=== PATIENT | male | born 1950 | race Caucasian/White ===

== ENCOUNTER → 2018-06-03 | Outpatient (CLI) | payer OTHER, MEDICARE ==
[~2018-06-03] MED LIST: ALBU1AER9 INH; ASPCH81 PO; CLBCR15 EXT; FLM4 PO; FLUO0.0121 EXT; FLUT0.15 NAE; HYDCR25 TOP; LISI40TA PO; LPT40 PO
--- NOTE | 2018-06-03 10:03 | DIAGNOSTIC IMAGING REPORT ---
L-SPINE MIN 4 VIEWS ROUTINE, SI JOINTS 3 OR MORE VIEWS HISTORY: 67 years-old Male M54.30 acute low back and sacral pain COMPARISON: PET CT 10/31/2016, CT abdomen and pelvis 04/28/2015 TECHNIQUE: 5 views of the lumbar spine and 3 views of the SI joints. FINDINGS: LUMBAR SPINE: 5 nonrib-bearing lumbar type vertebral segments are present. No spondylolysis or spondylolisthesis. Severe intervertebral disc space narrowing with spondylitic spurring and vacuum disc phenomenon noted at and L3-L4 and L4-L5 with moderate to severe intervertebral disc space narrowing at L5-S1. No spondylolysis or spondylolisthesis identified. No acute fracture or subluxation. Aortobiiliac stent graft noted. SI JOINTS: Mild degenerative changes about the bilateral SI joints. No acute fracture, dislocation or evidence of sacroiliitis. Mild degenerative changes of the femoral acetabular joints. Surgical clips project over the central pelvis. IMPRESSION: 1. No acute fracture or subluxation. 2. Degenerative changes as above. The above report was generated using voice recognition software. It may contain grammatical, syntax or spelling errors. Electronically signed by: Rohan Coleman M.D. 06/03/2018 10:01 AM Dictated Date/Time: 06/03/2018 9:58 AM
== END | disposition home or self-care (01) ==
LOC: C.RAD1850 09:34
PROVIDERS: ATTEND Internal Medicine Rheumatology
DX: M54.30 Sciatica, unspecified side (principal); Q87.40 Marfan syndrome, unspecified; L40.9 Psoriasis, unspecified; M46.1 Sacroiliitis, not elsewhere classified

== ENCOUNTER 2019-03-25 09:49 | Inpatient (IN) ==
--- NOTE | 2019-03-16 16:52 | PAT Medication Instructions ---
Medication Instructions Date of Service March 16, 2019 Home Medications Acne Lotion 1 dose TOPICAL UD PRN albuterol sulfate 1 puff INHALATION UD PRN amlodipine [Norvasc] 10 mg PO QPM aspirin [Aspir-81] 81 mg PO QAM atorvastatin [Lipitor] 40 mg PO QAM fluticasone propionate [Flonase Allergy Relief] 2 spray INTRANASAL DAILY fluticasone propionate [Flovent HFA] 2 puff INHALATION BID tamsulosin [Flomax] 0.8 mg PO QAM ASK your prescriber and surgeon aspirin [Aspir-81] 81 mg PO QAM STOP taking 24 hours before surgery Acne Lotion 1 dose TOPICAL UD PRN Take morning of surgery With a small sip of water, OTHERWISE NOTHING TO EAT OR DRINK AFTER MIDNIGHT: albuterol sulfate 1 puff INHALATION UD PRN (if needed, and bring with you to the hospital) atorvastatin [Lipitor] 40 mg PO QAM fluticasone propionate [Flonase Allergy Relief] 2 spray INTRANASAL DAILY fluticasone propionate [Flovent HFA] 2 puff INHALATION BID tamsulosin [Flomax] 0.8 mg PO QAM Take evening before surgery albuterol sulfate 1 puff INHALATION UD PRN (if needed) amlodipine [Norvasc] 10 mg PO QPM fluticasone propionate [Flonase Allergy Relief] 2 spray INTRANASAL DAILY fluticasone propionate [Flovent HFA] 2 puff INHALATION BID Other Notes If you have any questions please call us at [phone] or [phone] or [phone] or [phone]
--- NOTE | 2019-03-17 08:11 | PAT Medication Instructions ---
Medication Instructions Date of Service March 17, 2019 Home Medications Medications Acne Lotion 1 dose TOPICAL UD PRN 03/12/19 [History Confirmed 03/12/19] albuterol sulfate 1 puff INHALATION UD PRN 03/12/19 [History Confirmed 03/12/19] amlodipine [Norvasc] 10 mg PO QPM 03/12/19 [History Confirmed 03/12/19] aspirin [Aspir-81] 81 mg PO QAM 03/12/19 [History Confirmed 03/12/19] atorvastatin [Lipitor] 40 mg PO QAM 03/12/19 [History Confirmed 03/12/19] fluticasone propionate [Flonase Allergy Relief] 2 spray INTRANASAL DAILY 03/12/19 [History Confirmed 03/12/19] fluticasone propionate [Flovent HFA] 2 puff INHALATION BID 03/12/19 [History Confirmed 03/12/19] tamsulosin [Flomax] 0.8 mg PO QAM 03/12/19 [History Confirmed 03/12/19] Take morning of surgery With a small sip of water, OTHERWISE NOTHING TO EAT OR DRINK AFTER MIDNIGHT: Insulin Dependent Diabetic Patients * Test your blood sugar the morning of surgery * If Blood Sugar is GREATER THAN 150, take HALF of your regular dose of: * If Blood Sugar is LESS THAN 150, DO NOT TAKE ANY: Other Notes If you have any questions please call us at [phone] or [phone] or [phone] or [phone]
--- NOTE | 2019-03-17 08:12 | Anesthesiology Consultation ---
Date of Service March 17, 2019 Assessment & Plan (1) Encounter for pre-operative examination: - Note sent to PCP re: new EKG changes. Patient was referred to cardiology due to new EKG changes. - Per cardiology, "Proceed to surgery without additional testing for precaution." They felt that this was consistent with some abnormality in the inferior wall on stress echo from 2011. They will plan on repeat ECHO in the future to determine course of medical management, but do not feel this is ne cessary to proceed with surgery. Chart Review Chart Review: Acceptable Risk for Surgery and Patient seen in Pre Admission Testing Consults Requested none Teaching & Discussion Pre-Anesthesia Teaching/Discussion Notes: Instructed NPO after midnight before surgery, except medications with 15 cc of water. Medication instructions provided according to the PAT guidelines. History Surgery Operation Date: 03/25/19 11:30 Proposed Procedures p Navigational Bronchoscopy with ICG Marking, - Jean-Pierre Hernandez MD, FACS s Robotic Right Video Assisted Thoracoscopy with Right Lower Lobe Wedge Resection, Possible Right Lower Lobectomy with Mediastinal Lymphadenectomy - Jean-Pierre Hernandez MD, FACS Height/Weight Height: 6 ft 3 in Weight: 90.4 kg Allergies Allergy/AdvReac Type Severity Reaction Status Date / Time Beta-Blockers AdvReac Severe AV block Verified 03/12/19 12:23 (Beta-Adrenergic Bloc metoprolol AdvReac Unknown HIGH BLOOD Verified 03/12/19 12:23 PRESSURE perflutren AdvReac Unknown BACK AND Verified 03/12/19 12:23 LEG PAIN Medications Home Medications Medication Instructions Recorded Confirmed Last Taken Acne Lotion 1 dose TOPICAL UD PRN 03/12/19 03/12/19 Unknown albuterol sulfate 1 puff INHALATION UD PRN 03/12/19 03/12/19 Unknown amlodipine [Norvasc] 10 mg PO QPM 03/12/19 03/12/19 03/11/19 aspirin [Aspir-81] 81 mg PO QAM 03/12/19 03/12/19 03/12/19 atorvastatin [Lipitor] 40 mg PO QAM 03/12/19 03/12/19 03/12/19 fluticasone propionate [Flonase 2 spray INTRANASAL DAILY 03/12/19 03/12/19 Unknown Allergy Relief] fluticasone propionate [Flovent 2 puff INHALATION BID 03/12/19 03/12/19 03/12/19 HFA] tamsulosin [Flomax] 0.8 mg PO QAM 03/12/19 03/12/19 03/12/19 Past Medical History Medical History Asthma "mild" Back problem 2 bulging discs High blood pressure History of atrial fibrillation upon d/c for aaa repair - medications - resolved History of pneumothorax spontaneous 6-7 yrs ago, hx chest tube/no re-occurence Exercise / Class Metabolic Activity II 4-5 Yardwork/Stairs/Walk up hill (Weight training 3-4 times per week. Walks. Tries to keep busy. Able to climb FOS. Denies CP or SOB. ) Past Family History Family History Father Family history of lung cancer Brother Family history of prostate cancer Other Family history of colon cancer Past Surgical History Surgical History History of AAA (abdominal aortic aneurysm) repair AAA ruptured prior to repair -Had ETT placed with MAC, but no sizes noted on Anesthesia record. History of colonoscopy History of hernia surgery X5 (BILATERAL INGUINAL) Past Anesthesia History No Hx of Anesthesia Complications and No Family Hx of Anesthesia Complications History of PONV No Hx of PONV and No Hx of Motion Sickness Social History Smoking Status: Former smoker tobacco type: cigarettes Smoking cigarettes per day: 1ppd x 10 years Do You Dip or Chew Tobacco: No Smoking End Date: QUIT 40 YRS AGO Hx Alcohol Use: Yes Alcohol type: wine alcohol intake frequency: 0-2 drinks per day Hx Substance Use: No substance use type: does not use Review of Systems Patient denies chest pain, shortness of breath, dyspnea on exertion, reflux, cough, palpitations. +Joint Pain (Back, Leg) +Wheezing (resolved since starting Flovent) Physical Exam Vital Signs BP: 118/74 P: 60 R: 16 T: 98.1 SPO2: 98% on RA ENMT Thyromental Distance: < 3.5 Finger Breadths (3) Mallampati Class: II Neck normal visual inspection and trachea midline; neck extension not limited Respiratory normal respiratory effort Auscultation: lungs clear to auscultation bilaterally Cardiovascular Rate/Rhythm: regular rate and regular rhythm Heart Sounds: no murmur Vessels: no carotid bruit Neurologic moves all extremities Psychiatric Orientation: alert and oriented x 3 Testing Laboratory Results 03/17/19 08:45 03/17/19 08:45 03/17/19 08:45 Blood Type O Positive Antibody Screen NEGATIVE Electrocardiogram Date: 03/17/19 Findings: + SB @ (55) Sinus bradycardia with 1st degree AV block with occasional PVCs Left axis deviation Inferior infarct, age undetermined When compared with ECG of 06/30/16, PVCs are now present, Incomplete RBBB is no longer present Echocardiogram Date: 06/30/16 EF: 60-65% LV Function: normal RWMA: no none Other Findings: + LVH (moderate) and + diastolic dysfunction (Grade I) Valvular Disease: + MR (Trace) Small LV chamber size with moderate concentric LVH. Normal LV systolic function without RWMA, EF 60-65%. Grade I diastolic dysfunction. Trace mitral regurgitation. Borderline enlargement of the aortic root. Stress Test Date: 07/02/16 Type: exercise Findings: + WNL; no ischemia Resting LV Function: normal Resting RWMA: + none Nonischemic exercise stress echocardiogram. No arrhythmias. Hypertensive BP response to exercise. Average exercise tolerance. Normal baseline electrocardiogram. Stress ECG: No ST changes. No arrhythmias. Maximum heart rate achieved was 171 bpm. Maximum HR was 111% of MPHR. Maximum BP was 213/118. Maximum exercise MET level achieved was 10.1 METS. Exercise was terminated due to "doctor discretion after achieving target heart rate". Other Testing CT SCAN OF THE CHEST WITH IV CONTRAST 09/24/18 FINDINGS: Thyroid: Imaged portions of the thyroid gland are normal in size and attenuation. Thoracic aorta: There is atherosclerotic calcification of the thoracic and. There is mild ectasia of the ascending thoracic aorta which measures up to 4.1 cm in diameter. The remainder of the thoracic aorta is normal in caliber, and the arch demonstrates standard 3-vessel anatomy. No dissection is seen. Pulmonary vasculature: The pulmonary trunk is normal in caliber. There are no filling defects identified in the central pulmonary vessels to indicate pulmonary embolus. Note that this examination was not protocoled for evaluation of the pulmonary arteries. Heart: The heart is enlarged and without pericardial effusion. Lungs and pleural spaces: Mild emphysematous change is seen in the upper lobes. The trachea and central airways are clear. There is a 13 mm spiculated nodule in the right lower lobe seen on image #217, which was not seen on prior examinations. There is linear atelectasis/scarring identified in the lower lobes. Scarring the right lower lobe in image #240 demonstrates a more nodular configuration and measures up to 1.8 cm. An 8 mm nodule in the lingula is seen on image #186. A 7 mm groundglass nodule is seen in the left upper lobe on image #137. There is no airspace consolidation or pleural effusion. Mediastinum: There are scattered subcentimeter mediastinal lymph nodes. These are not pathologically enlarged by size criteria. Nataliia: Clear. Axillae: There is no axillary lymphadenopathy. 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 A stent graft is partially visualized in the upper abdominal aorta. Skeletal structures: The skeletal structures are osteopenic. There are healed left-sided rib fractures. Degenerative change is noted in the shoulders and thoracic spine. No lytic or blastic bony lesions are seen. IMPRESSION: 1. Cardiomegaly and emphysema. 2. There is a new 13 mm spiculated nodule in the right lower lobe. This is new from prior studies and highly concerning for lung cancer. Surgical assessment is recommended. 3. An 8 mm nodule in the lingula and a 7 mm groundglass nodule in the left upper lobe have been present dating back to 2008. These are unchanged to only slightly increased in size from previous. 4. There is no airspace consolidation typical for pneumonia or pleural effusion. 5. There is bibasilar scarring/atelectasis. Parenchymal scarring in the right lower lobe demonstrates a somewhat nodular configuration. Attention at follow-up is recommended. 6. Additional findings as above. PET/CT 10/08/18 FINDINGS: Head and neck: No abnormal FDG uptake is identified within the neck. There is no cervical lymphadenopathy. Chest: There is mild FDG uptake associated with a healing fracture of the left fourth rib with an SUV max of 2.6. No additional sites of abnormal FDG uptake are identified within the chest. Note is made of a 1.2 cm right lower lobe nod ule on image 94 of 267 which has mildly increased in size since CT of September 14, 2016. This has no significant FDG uptake with an SUV max of 1.1. A 7 mm groundglass left upper lobe nodule on image 81 has no FDG uptake but is likely below size threshold for evaluation by PET imaging. This has mildly increased in size since a chest CT of April 30, 2015. An 8 mm lingular nodule shown on image 90 is suboptimally assessed given respiratory motion. This is likely unchanged from earlier exams. There is no thoracic lymphadenopathy. The heart is moderately enlarged. Abdomen and Pelvis: No abnormal FDG uptake is identified within the abdomen or pelvis. A horseshoe kidney is noted. Bifurcated aortoiliac stent graft is in place. There is no lymphadenopathy. There is colonic diverticulosis without evidence for acute diverticulitis. Musculoskeletal: No suspicious skeletal uptake is identified. IMPRESSION: 1. No significant FDG uptake within a 1.2 cm right lower lobe nodule. Despite lack of significant FDG uptake, this nodule is highly suggestive of a slow- growing bronchogenic malignancy such as adenocarcinoma. 2. 7 mm groundglass left upper lobe nodule which has minimally increased in size since CT of April 30, 2015. This may reflect a low-grade neoplasm and can be assessed on subsequent exams. 3. 8 mm lingular nodule which is suboptimally assessed on this exam. This is probably benign. 4. No evidence for metastatic disease. 5. Mild FDG uptake within a healing left fourth rib fracture.
[2019-03-17 09:58] LABS: Basophils # (auto) 0.02 K/uL (0-0.2); Basophils % (auto) 0.3 %; Eosinophils # (auto) 0.22 K/uL (0-0.5); Eosinophils % (auto) 3.6 %; Hematocrit (blood only) 42.3 % (42-52); Hemoglobin 14.7 g/dL (14.0-18.0); Immature Granulocytes # (auto) 0.01 K/uL (0.00-0.02); Immature Granulocytes % (auto) 0.2 %; Lymphocytes # (auto) 1.63 K/uL (1.2-3.4); Mean Corpuscular Hgb Conc 34.8 g/dL (32-36); Mean Corpuscular Volume 93.6 fL (80-100); Mean Platelet Volume 10.4 fL (7.4-10.4); Monocytes # (auto) 0.58 K/uL (0.11-0.59); Monocytes % (auto) 9.6 %; Neutrophils # (auto) 3.58 K/uL (1.4-6.5); Neutrophils % (auto) 59.3 %; Platelet Count 205 K/uL (130-400); RDW Coefficient of Variation 13.6 % (11.5-14.5); RDW Standard Deviation 46.6 fL (36.4-46.3); Red Blood Count 4.52 M/uL (4.7-6.1); White Blood Count 6.04 K/uL (4.8-10.8)
[2019-03-17 10:09] LABS: BUN Creatinine Ratio 20.4 (10-20); Calcium 8.7 mg/dl (8.5-10.1); Creatinine Clr Calc Pharmacy 87.7 ml/min; Est GFR (African American) 94.3; Est GFR (Non-African American) 81.3; Potassium 4.1 mmol/L (3.5-5.1)
[~2019-03-25 09:49] MED LIST changes: -ALBU1AER9 INH; -ASPCH81 PO; -CLBCR15 EXT; -FLM4 PO; -FLUO0.0121 EXT; -FLUT0.15 NAE; -HYDCR25 TOP; -LISI40TA PO; -LPT40 PO; +LR 15ML/HR IV SCH; +MIDAZOLAM HCL 1 MG/ML 2ML VIAL ONE; +fentaNYL citrate 100 MCG/2 ML VIAL ONE
[2019-03-25] MEDS ORDERED: ONDANSETRON INJ 2 MG/ML 2 ML VIAL IV PRN ×3 (10:47→17:06)
[2019-03-25] MEDS ORDERED: ePHEDrine sulfate 50 MG/ML AMP IV PRN ×2 (10:47→15:52)
[2019-03-25] MEDS ORDERED: fentaNYL citrate 100 MCG/2 ML VIAL IV PRN (10:47)
[2019-03-25] MEDS ORDERED: ATROPINE SULFATE 0.1 MG/ML 10ML SYR IV PRN ×2 (10:47→15:52)
--- NOTE | 2019-03-25 10:49 | History & Physical Bridge Note ---
Date of Service March 25, 2019 History & Physical Bridge Note I have examined the patient, reviewed the History & Physical and in the interval since the performance of the History & Physical I have noted the following changes of clinical significance: no changes noted
[2019-03-25] MEDS ORDERED: BUPIVACAINE 0.5 % 5 MG/1 ML MPF 30ML VIAL ONE (11:12)
[2019-03-25] MEDS ORDERED: BUPIVACAINE LIPOSOME 1.3% 266 MG/20 ML VIAL ONE (11:12)
[2019-03-25] MEDS ORDERED: SODIUM CHLORIDE 0.9% PF 50 ML VIAL ONE (11:12)
[2019-03-25] MEDS ORDERED: CLINDAMYCIN 900 MG in DEXTROSE 5% 50 ML IV ONE (11:50)
[2019-03-25] MEDS ORDERED: INDOCYANINE GREEN 25 MG/10 ML INJ ONE (11:55)
--- NOTE | 2019-03-25 12:22 | Fluoroscopy Report ---
FL chest 1V frontal HISTORY: 68 years-old Male ANABELL BRONCH W/ ICG MARKING status post bronchoscopy of the right lung COMPARISON: PET CT 10/08/2018 TECHNIQUE: Single AP fluoroscopic view of the right chest was obtained utilizing 46 seconds fluorosco py time. FINDINGS: A bronchoscope is noted projecting over the right lung base. Previously described solid pulmonary nod ule not identified. IMPRESSION: Fluoroscopic assistance as above. Please see procedural report for further details. The above report was generated using voice recognition software. It may contain grammatical, syntax o r spelling errors. Electronically signed by: Rohan Coleman M.D. 03/25/2019 12:21 PM
[2019-03-25] MEDS ORDERED: ONDANSETRON INJ 2 MG/ML 2 ML VIAL ONE ×2 (12:47→15:39)
[2019-03-25] MEDS ORDERED: PROPOFOL IV EMULSION 10 MG/ML 20 ML VIAL IV ONE (12:47)
[2019-03-25] MEDS ORDERED: DEXAMETHASONE SOD INJ 4 MG/ML VIAL ONE (12:47)
[2019-03-25] MEDS ORDERED: ROCURONIUM BROMIDE 10 MG/ML 5 ML VIAL ONE (12:47)
[2019-03-25] MEDS ORDERED: LIDOCAINE HCL 2% 2 ML VIAL/AMP(20MG/ML) INFIL ONE (12:47)
[2019-03-25] MEDS ORDERED: ePHEDrine sulfate 50 MG/ML SYR ONE (12:47)
[2019-03-25] MEDS ORDERED: CLINDAMYCIN PHOS 300 MG/2 ML VIAL ONE (12:47)
[2019-03-25] MEDS ORDERED: NEOSTIGMINE METHYLSULFATE 5 MG/5 ML SYR ONE (12:47)
[2019-03-25] MEDS ORDERED: GLYCOPYRROLATE 0.2 MG/ML VIAL ONE (12:47)
[2019-03-25] MEDS ORDERED: SURGICEL ABSORB HEMOSTAT 2IN X 14IN TOP ONE (13:34)
[2019-03-25] MEDS ORDERED: SUGAMMADEX SODIUM 200 MG/2 ML VIAL IV ONE (15:04)
--- NOTE | 2019-03-25 15:13 | Post Operative Brief Note ---
Immediate Post Op Note v1 Date of Surgery March 25, 2019 Pre & Post Diagnosis Operation Date: 03/25/19 11:30 Pre-Op Diagnosis: Right Lung Nodule Post-Op Diagnosis: Adenocarcinoma right lower lobe Procedure Operation Date: 03/25/19 11:30 Actual Procedures p Navigational Bronchoscopy with ICG Marking, - Jean-Pierre Hernandez MD, FACS s Robotic Right Video Assisted Thoracoscopy with Right Lower Lobe Wedge Resection,Right Lower Lobectomy with Mediastinal Lymphadenectomy(Right) - Jean-Pierre Hernandez MD, FACS Surgeon Jean-Pierre Hernandez MD, FACS Injection Mold Technician Robi HOWELL Estimated Blood Loss 100 Findings Consistent with Post-Op Diagnosis Drains Chest Tube and Riojas Catheter
[2019-03-25] MEDS ORDERED: METOCLOPRAMIDE HCL INJ 5 MG/ML 2 ML VIAL IV ONE (15:30)
[2019-03-25] MEDS: fentaNYL citrate 100 MCG/2 ML VIAL IV PRN ×3 (15:44→16:07)
--- NOTE | 2019-03-25 15:59 | XRay Report ---
XR chest 1V portable HISTORY: 68 years-old Male RLL follow-up study in a patient with a right lower lobe pulmonary nodule COMPARISON: PET CT 10/08/2018 TECHNIQUE: Portable AP view of the chest FINDINGS: A right-sided chest tube is noted, distal tip terminating superior to the right hilum. Small right ap ical pneumothorax is noted, pleural separation measuring up to 1.2 cm. Mild subcutaneous emphysema ab out the lateral right chest wall. Interstitial opacities of the lung bases suggest atelectasis/scarri ng. Cardiac silhouette is enlarged. No large pleural effusion. Degenerative changes of the shoulders and spine. IMPRESSION: 1. Right-sided chest tube with distal tip noted superior to the right hilum. 2. Small right apical pneumothorax. The above report was generated using voice recognition software. It may contain grammatical, syntax o r spelling errors. Electronically signed by: Rohan Coleman M.D. 03/25/2019 3:57 PM
--- NOTE | 2019-03-25 16:21 | Anesthesiology Progress Note ---
Date of Service March 25, 2019 Anesthesia Post Procedure Vital Signs Vital Signs: Temp Pulse Resp BP Pulse Ox 03/25/19 16:10 91 H 17 132/76 97 03/25/19 16:00 90 14 124/78 97 03/25/19 15:50 81 11 L 127/75 99 03/25/19 15:40 87 21 108/84 99 03/25/19 15:31 36 C L 91 H 20 134/80 99 03/25/19 10:12 36.5 C 61 14 143/85 H 96 Pain Intensity Lower Back: Pain Intensity: 4 Transfer of Care Handoff Completed per policy Notes Mental Status: alert / awake / arousable and participated in evaluation Patient Amnestic to Procedure: Yes Nausea / Vomiting: adequately controlled Pain: adequately controlled Airway Patency, RR, SpO2: stable & adequate BP & HR: stable & adequate Hydration State: stable & adequate Anesthetic Complications: no major complications apparent and Pt Satisfied with anesthetic care
[2019-03-25] MEDS ORDERED: ACETAMINOPHEN 1,000 MG/100 ML VIAL IV STA (16:22)
[2019-03-25] MEDS ORDERED: ACETAMINOPHEN 1000 MG/100 ML IV IV ONE (16:23)
[2019-03-25] MEDS ORDERED: ALBUTEROL HFA 8 GM INHALER INH PRN (17:06)
[2019-03-25] MEDS ORDERED: MoRPHine SULFATE 2 MG/ML CARP IV PRN (17:06)
[2019-03-25] MEDS: D5W AND 1/2NSS 1,000 ML IV SCH (17:51)
[2019-03-25] MEDS: ACETAMINOPHEN 1,000 MG/100 ML VIAL IV SCH (17:52)
[2019-03-25] MEDS: FLUTICASONE HFA 110MCG INHALER INH SCH (20:10)
[2019-03-25] MEDS: AMLODIPINE BESYLATE 5 MG TAB PO SCH (20:11)
[2019-03-25] MEDS: DOCUSATE SODIUM 100 MG CAP PO SCH (20:11)
[2019-03-25] MEDS: KETOROLAC TROMETHAMINE 15 MG/ML VIAL IV PRN (20:13)
[2019-03-25] MEDS: METOCLOPRAMIDE HCL INJ 5 MG/ML 2 ML VIAL IV SCH (22:10)
[2019-03-26] MEDS: ACETAMINOPHEN 1,000 MG/100 ML VIAL IV SCH (01:31)
[2019-03-26] MEDS: KETOROLAC TROMETHAMINE 15 MG/ML VIAL IV PRN ×2 (02:03→20:18)
--- NOTE | 2019-03-26 02:18 | Operative Report ---
DATE OF OPERATION: 03/25/2019 PREOPERATIVE DIAGNOSIS: Right lower lobe lung nodule. POSTOPERATIVE DIAGNOSIS: Adenocarcinoma, right lung. PROCEDURES: 1. Electromagnetic navigational bronchoscopy with marking of nodule with indocyanine green dye, fluorescent eye. 2. Robot-assisted thoracoscopic wedge resection with frozen section. 3. Robot-assisted thoracoscopic right lower lobectomy. 4. Mediastinal lymphadenectomy. SURGEON: Jean-Pierre Hernandez MD LITERATURE PROFESSOR: LYNDA Flynn (Mr. Case was present for the entire case and was instrumental in being at the patient's bedside while I was at the console. He stayed the entire case to help close the skin incisions at the conclusion). ANESTHESIA: General anesthesia with endotracheal intubation with a double lumen tube. INDICATIONS FOR PROCEDURE AND FINDINGS: This patient is a very nice 68-year-old male who has a history of light cigarette smoking in the distant past who was found to have a mass in his right lower lobe. It was not very hypermetabolic, but it was worrisome. For this reason, he was brought in to the operating room on 03/25/2019 and performed an electromagnetic navigational bronchoscopy and marked this area with indocyanine green dye. We did turn the patient into a left lateral decubitus position and entered his right chest. He had no adhesions. We went down and we could see that the mass did indeed light up with the fluorescence. We wedged this out and it was a discrete nodule about a centimeter. The frozen section showed to be an adenocarcinoma. We proceeded with a robot-assisted thoracoscopic right lower lobectomy and mediastinal lymphadenectomy. He had negligible blood loss. He had no air leak at the conclusion of the case. He was x-rayed in the room. He tolerated it very well. DESCRIPTION OF PROCEDURE: The patient was brought to the operating room and laid in supine position. General anesthesia induced with endotracheal intubation was performed with a double lumen tube. A fiberoptic bronchoscope was then placed through this tube and we registered the airways. There were no endobronchial abnormalities and no sputum production. After registering the airways, the probe then went down to the lower lobe and basilar segments medially and was able to come out to this nodule. Using the radial ultrasound, it appeared we were in the vicinity of this mass. A 0.5 mL of indocyanine green and 0.5 mL of air were used and injected with a biopsy needle through the working channel of the scope into this area. This was done under fluoroscopic guidance. We then removed the needle and we then turned the patient into the left lateral decubitus position so his right chest was up. After prepping and draping in usual sterile fashion and calling another time out and given prophylactic antibiotics, we made an incision for A-port just anterior to the mid axillary line about the eighth interspace. It should be noted that we used Exparel 266 mg in 20 mL of solution was mixed with 30 mL of 0.5% bupivacaine and 250 mL of normal saline. We used this to inject each of the port sites. Once we in the chest, we then used this to do an intrathoracic intercostal nerve block from the 2nd through 11th rib. After inserting the first port, we changed this over to a camera port and then placed two 8 mm ports, 1 medially, 1 laterally and then 5 mm port closer to the spine just about in the same interspace. We then made an child welfare assistant port with 15 mm port just above the diaphragm anteriorly. Upon entering the chest, we closely inspected the right lower lobe and found the area which had been marked with the indocyanine green dye with using to the fluorescent light. We then wedged this out with a generous wedge and sent this off to the lab. While waiting for this, I took down the inferior pulmonary ligament, biopsied level 9 node. Coming up with biopsy level 8 and freed up the inferior pulmonary vein inferiorly and posteriorly until we got above it. Continuing up, I biopsied level 8 nodes and then level 7 nodes. Once we got up here, we then retracted to the right upper and right lower lobes medially and freed up the bronchus sharply. We then came up and we freed up until I got to the bifurcation of the upper lobe bronchus and the bronchus intermedius. There was a lymph node here in the level 11 area which we dissected out nicely. We identified the A3 segment of the pulmonary artery. We took care to avoid injury to this artery. The frozen section back that this indeed was an adenocarcinoma. I dissected out a level 10 node just under the azygos vein and then dissected out the level 2 and level 4 nodes. I then dropped back down and repositioned in the fissure and I was able to get by separate the middle lobe from the lower lobe quite easily. There were multiple lymph nodes which were biopsied and interestingly enough there was an intrapulmonary lymph node right under the pleura on the lower lobe, which we sent off, which was enlarged, but did not appear hard. After dissecting all of this out, we identified the artery very nicely. As we hit down a good deal of dissection posteriorly, I was able to easily come across the artery and drop myself down just lateral to the artery and the bronchus and the fissure and fired an Endo-HARJINDER stapler x2 to complete the posterior fissure. From here, it was not easy. We had excellent visualization and could see the middle lobe artery, middle lobe vein and the middle lobe bronchus. Endo-HARJINDER stapler was fired across the continuation of pulmonary artery. This worked very nicely and we were able to see quite well. We then dissected out the rest of the bronchus posteriorly and freed up the bronchus and pulmonary vein. The Endo-HARJINDER stapler was fired across the pulmonary vein and then we fired this across the bronchus just distal to the takeoff of the middle lobe. The specimen was then placed in an Endobag, which was removed. Through the assistance port, we had to open this up a bit. After removing this, we closely inspected the area, inflated the lung. We did not see any air leak. We had negligible blood loss. A 24-Frisian chest tube was placed to the camera port and directed towards the apex, held in place with heavy silk suture. A 0 Vicryl on V-Loc was then used to close the muscle layer of the child welfare assistant's port. A 4-0 Monocryl was used in running subcuticular fashion to approximate the wound edges. The patient had no air leak at the conclusion of the case, was extubated in the room with negligible blood loss. He tolerated it quite well. I attest to the content of the Intraoperative Record and any orders documented therein. Any exceptions are noted below. RAMAN
[2019-03-26] MEDS: D5W AND 1/2NSS 1,000 ML IV SCH (03:22)
[2019-03-26] MEDS: METOCLOPRAMIDE HCL INJ 5 MG/ML 2 ML VIAL IV SCH ×2 (06:08→13:48)
[2019-03-26 06:18] LABS: Basophils # (auto) 0.01 K/uL (0-0.2); Basophils % (auto) 0.1 %; Hematocrit (blood only) 38.2 % (42-52); Hemoglobin 13.3 g/dL (14.0-18.0); Immature Granulocytes # (auto) 0.02 K/uL (0.00-0.02); Immature Granulocytes % (auto) 0.2 %; Lymphocytes % (auto) 6.3 %; Mean Corpuscular Volume 92.9 fL (80-100); Mean Platelet Volume 10.2 fL (7.4-10.4); Monocytes # (auto) 0.82 K/uL (0.11-0.59); Monocytes % (auto) 7.4 %; Neutrophils # (auto) 9.52 K/uL (1.4-6.5); Platelet Count 192 K/uL (130-400); RDW Coefficient of Variation 13.5 % (11.5-14.5); RDW Standard Deviation 45.9 fL (36.4-46.3); Red Blood Count 4.11 M/uL (4.7-6.1); White Blood Count 11.07 K/uL (4.8-10.8)
[2019-03-26 06:20] LABS: Mean Corpuscular Hgb Conc 34.8 g/dL (32-36)
[2019-03-26 06:34] LABS: BUN Creatinine Ratio 17.4 (10-20); Calcium 8.1 mg/dl (8.5-10.1); Creatinine Clr Calc Pharmacy 75.1 ml/min; Est GFR (African American) 78.1; Est GFR (Non-African American) 67.4
--- NOTE | 2019-03-26 07:06 | Progress Note ---
DATE: 03/26/2019 Mr. Melvin is one day status post robot-assisted thoracoscopic right lower lobectomy. He looks great. He is on room air. He has been ambulating. He is tolerating p.o. He has good pain control. He has a tiny air leak. He will probably be in the hospital for 48 more hours, but I have been quite pleased with him. RAMAN
--- NOTE | 2019-03-26 07:44 | XRay Report ---
SINGLE VIEW CHEST CLINICAL HISTORY: Status post right lower lobe resection. FINDINGS: An AP, portable, upright chest radiograph is compared to study dated 03/25/2019 and correlat ed with chest CT dated 09/24/2018. The examination is degraded by portable technique and patient rota tion. The heart is mildly enlarged and there is atherosclerotic calcification of the thoracic aorta. The pulmonary vasculature is noncongested. A right-sided chest tube is unchanged in position. Trace right apical pneumothorax persists. Emphysema and chronic interstitial thickening are again noted. Th ere is volume loss in the right lung consistent with right lower lobe resection. There is bibasilar s carring/atelectasis. Pleural fluid is noted at the right lung base. The skeletal structures are osteo penic. The bony thorax is grossly intact. Subcutaneous emphysema is again seen in the right lower nec k and along the right chest wall. IMPRESSION: 1. Again seen is postoperative change from right lower lobe resection. 2. A right-sided chest tube is unchanged in position. A trace right apical pneumothorax persists. 3. Cardiomegaly and emphysema. 4. A small volume of pleural fluid is seen at the right lung base. Electronically signed by: Luis Meneses M.D. 03/26/2019 7:42 AM
[2019-03-26] MEDS: DOCUSATE SODIUM 100 MG CAP PO SCH ×2 (08:30→20:18)
[2019-03-26] MEDS: ACETAMINOPHEN 325 MG TAB PO SCH ×4 (08:30→23:33)
[2019-03-26] MEDS: FLUTICASONE HFA 110MCG INHALER INH SCH ×2 (08:31→20:18)
[2019-03-26] MEDS: ATORVASTATIN 40 MG TAB PO SCH (08:31)
[2019-03-26] MEDS: FLUTICASONE PROPIONATE NA SPR 16 GM BTL SCH (08:31)
[2019-03-26] MEDS: TAMSULOSIN HCL 0.4 MG CAP PO SCH (08:31)
[2019-03-26] MEDS: ASPIRIN 81 MG ECTAB PO SCH (08:31)
[2019-03-26 09:34] LABS: Prothrombin Time 10.5 Seconds (9.0-12.0)
[2019-03-26] MEDS: ENOXAPARIN INJ 40 MG/0.4 ML SYR SQ SCH (10:12)
--- NOTE | 2019-03-26 11:53 | Surgery Progress Note ---
Date of Service March 26, 2019 Assessment & Plan (1) Non-small cell cancer of right lung: -pt. is POD #1 Robotic RLL -CXR this am shows small apical pneumothorax on right -chest tube noted to have a small air leak -chest tube will remain in place due to small air leak -continue pain control measures -continue ambulation, use of IS, coughing, deep breathing -lovenox is in place for DVT prevention Subjective Pt. notes pain is well controlled. he denies SOB. he has ambulated in hallway. He is tolerating diet and voiding without diffculty. Discussed with h RN--no concern noted at this time. Physical Exam Constitutional: WD/WN, vitals as above Respiratory: BS noted to have slight decrease at right base. No wheezing Cardiovascular: Rate/Rhythm: regular rate and regular rhythm Musculoskeletal: No calf tenderness Results & Data Vital Signs (Past 12 Hours) Vital Signs Temp Pulse Resp BP BP Pulse Ox 03/26/19 07:45 36.5 C 63 16 105/64 95 03/26/19 03:50 36.8 C 60 16 113/65 93 03/26/19 01:50 36.5 C 69 16 108/66 92 03/26/19 01:27 84 18 93
[2019-03-26] MEDS ORDERED: POLYETHYLENE (MIRALAX) 17 GM PACK PO PRN (16:02)
[2019-03-26] MEDS: AMLODIPINE BESYLATE 5 MG TAB PO SCH (20:18)
[2019-03-27] MEDS: OXYCODONE HCL IR 5 MG TAB (IMMEDIATE RELEASE) PO PRN ×4 (00:17→20:15)
[2019-03-27] MEDS: KETOROLAC TROMETHAMINE 15 MG/ML VIAL IV PRN ×2 (04:29→15:23)
[2019-03-27] MEDS: ACETAMINOPHEN 325 MG TAB PO SCH ×4 (06:18→23:34)
--- NOTE | 2019-03-27 07:48 | XRay Report ---
XR chest 1V portable HISTORY: 68 years-old Male RLL prior right lower lobe resection COMPARISON: Chest radiograph 03/26/2019 TECHNIQUE: Portable AP view of the chest FINDINGS: Cardiomediastinal and hilar silhouettes are unchanged. Postoperative changes of the right lung redemo nstrated. Right-sided chest tube distal tip terminates adjacent to the right hilum. Emphysema. Persis tent tiny right apical pneumothorax is unchanged. Persistent subcutaneous emphysema about the right c hest wall. Slightly progressive bibasilar opacities suggest probable atelectasis. Bones appear grossl y intact. IMPRESSION: 1. Postoperative changes of the right lung redemonstrated. 2. Stable positioning of the right-sided chest tube with unchanged tiny right apical pneumothorax. 3. Slightly progressive bilateral interstitial opacities suggestive of probable atelectasis. The above report was generated using voice recognition software. It may contain grammatical, syntax o r spelling errors. Electronically signed by: Rohan Coleman M.D. 03/27/2019 7:47 AM
[2019-03-27] MEDS: ASPIRIN 81 MG ECTAB PO SCH (08:21)
[2019-03-27] MEDS: TAMSULOSIN HCL 0.4 MG CAP PO SCH (08:21)
[2019-03-27] MEDS: FLUTICASONE HFA 110MCG INHALER INH SCH ×2 (08:21→20:16)
[2019-03-27] MEDS: DOCUSATE SODIUM 100 MG CAP PO SCH ×2 (08:21→20:15)
[2019-03-27] MEDS: ATORVASTATIN 40 MG TAB PO SCH (08:21)
[2019-03-27] MEDS: ENOXAPARIN INJ 40 MG/0.4 ML SYR SQ SCH (08:22)
[2019-03-27] MEDS: FLUTICASONE PROPIONATE NA SPR 16 GM BTL SCH (08:22)
--- NOTE | 2019-03-27 10:45 | Surgery Progress Note ---
Date of Service March 27, 2019 Assessment & Plan (1) Non-small cell cancer of right lung: -pt. is POD #1 Robotic RLL -frozen section revealed non-small cell lung cancer (final path for staging is pending) -CXR this am again shows small apical pneumothorax on right -chest tube witout air leak this am -chest tube will remain in place today with probable removal tomorrow -continue pain control measures -continue ambulation, use of IS, coughing, deep breathing -miralax added to assist with BM -lovenox is in place for DVT prevention Subjective Pt. notes he had some issues with pain control overnight, but current regimen is helping. He denies SOB. He continues to ambulate in hallway. He is tolerating diet and voiding without difficulty. He is passing flatus but no BM since surgery. Discussed with h RN--no concern noted. Physical Exam Constitutional: WD/WN, vitals as above well developed and well nourished; no acute distress Respiratory: BS are decrease at right base but otherwise clear; no wheezing or rhonchi Cardiovascular: Rate/Rhythm: regular rate and regular rhythm Gastrointestinal (Abdomen): soft and non-tender to palpation Musculoskeletal: no calf tenderness Results & Data Vital Signs (Past 12 Hours) Vital Signs Temp Pulse Resp BP Pulse Ox 03/27/19 07:30 36.5 C 60 18 120/74 91 03/26/19 23:06 36.7 C 70 16 153/80 H 92
[2019-03-27] MEDS: AMLODIPINE BESYLATE 5 MG TAB PO SCH (20:15)
[2019-03-28] MEDS: OXYCODONE HCL IR 5 MG TAB (IMMEDIATE RELEASE) PO PRN (04:20)
[2019-03-28] MEDS: ACETAMINOPHEN 325 MG TAB PO SCH (05:50)
--- NOTE | 2019-03-28 07:05 | XRay Report ---
XR chest 1V portable CLINICAL HISTORY: 68 years-old Male presenting with RLL. TECHNIQUE: Portable upright AP view of the chest was obtained. COMPARISON: 03/27/2019. FINDINGS: Large bore right pleural drain remains positioned at the paramediastinal right midlung. Associated ex tensive soft tissue emphysema along the right lateral chest wall and right base of the neck. Cardiome diastinal silhouette unchanged. Extensive left lower lung opacity stable from prior. Trace left pleur al effusion. Right lung and pleural space clear apart from minimal right basilar opacity, unchanged. No pneumothorax. Osseous structures normal. Upper abdomen normal. IMPRESSION: 1. Right pleural drain remains in place. No evidence of a pneumothorax on the current radiograph. 2. Bibasilar atelectasis more extensive on the left. 3. Trace left pleural effusion. Electronically signed by: Senthil Lipscomb M.D. 03/28/2019 7:04 AM
[2019-03-28] MEDS: ATORVASTATIN 40 MG TAB PO SCH (07:59)
[2019-03-28] MEDS: FLUTICASONE PROPIONATE NA SPR 16 GM BTL SCH (07:59)
[2019-03-28] MEDS: DOCUSATE SODIUM 100 MG CAP PO SCH (07:59)
[2019-03-28] MEDS: ASPIRIN 81 MG ECTAB PO SCH (07:59)
[2019-03-28] MEDS: FLUTICASONE HFA 110MCG INHALER INH SCH (07:59)
[2019-03-28] MEDS: TAMSULOSIN HCL 0.4 MG CAP PO SCH (08:00)
[2019-03-28] MEDS: ENOXAPARIN INJ 40 MG/0.4 ML SYR SQ SCH (08:00)
--- NOTE | 2019-03-28 08:15 | XRay Report ---
XR chest 1V portable CLINICAL HISTORY: 68 years-old Male presenting with tube removal. TECHNIQUE: Portable upright AP view of the chest was obtained. COMPARISON: 03/28/2019 at 6:54 AM. FINDINGS: Interval removal of the right pleural drain. Subcutaneous emphysema along the right lateral chest wal l and right base of the neck remains. Cardiomediastinal silhouette unchanged. Mildly low lung volumes . Bandlike opacity at the left lung base persists. Trace left pleural effusion suspected. No pneumoth orax. Osseous structures normal. Upper abdomen normal. IMPRESSION: 1. No pneumothorax status post removal of the right pleural drain. 2. Persistent extensive left basilar atelectasis. 3. Suspected trace left pleural effusion. Electronically signed by: Senthil Lipscomb M.D. 03/28/2019 8:13 AM
--- NOTE | 2019-03-29 20:31 | Discharge Summary ---
ADMISSION DIAGNOSIS: Right lung nodule. DISCHARGE DIAGNOSIS: Nonsmall cell lung cancer of the right lung with final staging pending. HOSPITAL COURSE: This is a patient who is seen and evaluated by Dr. Hernandez as an outpatient. The patient was noted to have a right lung nodule and due to the appearance Dr. Hernandez recommended a surgical wedge resection with possible lobectomy based on frozen resection analysis. On date of admission, Dr. Hernandez took the patient to the Operating Room where he performed a robotic assisted, right video-assisted, thoracoscopic right lower lobe wedge resection. The frozen resection revealed a nonsmall cell lung carcinoma. Dr. Hernandez therefore proceeded with a right lower lobectomy and mediastinal lymphadenectomy. During patient's postoperative course, he did have a chest tube that had a small air leak that resolved by postop day #2 and therefore, his chest tube was discontinued in the appropriate fashion on postop day #3. The patient did have a small right apical pneumothorax following tube removal but this was felt to be of no consequence. He was ultimately discharged home on postop day #3 after completely uneventful postoperative course. The patient was given written and verbal instructions on followup instructions. Our office will call him for a followup appointment in approximately 1 week with a repeat chest x-ray. He was told he could remove his dressings in 3 days and shower thereafter but not to take any tub baths. He was instructed not to drive until seen by Dr. Hernandez. The patient's home medications have all been unchanged prior to admission with the only new addition being Ultram as needed for pain.
== END 2019-03-28 09:44 | disposition home or self-care (01) | DRG 165 ==
LOC: ASU 09:49 → 3W 15:21